=== PATIENT | female | born 1990 | race Caucasian/White ===

== ENCOUNTER 2017-03-22 10:34 | Inpatient (IN) ==
[2017-03-22] MEDS ORDERED: AMPICILLIN 2,000 MG VIAL ONE (10:50)
[2017-03-22] MEDS ORDERED: SODIUM CHLORIDE 0.9% 100 ML IV ONE (10:50)
[2017-03-22] MEDS ORDERED: AMPICILLIN INJ 2,000 MG in SODIUM CHLORIDE 0.9% 100 ML IV ONE (11:05)
[2017-03-22] MEDS ORDERED: MEPERIDINE 50 MG/1 ML VIAL IV PRN (11:13)
[2017-03-22] MEDS ORDERED: ONDANSETRON 4 MG/2 ML VIAL IV PRN (11:13)
[2017-03-22] MEDS ORDERED: BUTORPHANOL 2 MG/ML VIAL IV PRN (11:13)
[2017-03-22] MEDS ORDERED: diphenhydrAMINE 50 MG/1 ML VIAL IV PRN ×2 (11:17)
[2017-03-22] MEDS ORDERED: CITRIC ACID/SODIUM CITRATE 30 ML UDCUP PO ONE (11:17)
[2017-03-22] MEDS ORDERED: LACTATED RINGERS 1,000 ML IV ONE (11:17)
[2017-03-22] MEDS ORDERED: ONDANSETRON 4 MG/2 ML VIAL IV ONE (11:17)
[2017-03-22] MEDS ORDERED: FAMOTIDINE 20 MG/2 ML VIAL IV ONE (11:17)
[2017-03-22] MEDS ORDERED: PROMETHAZINE 25 MG/1 ML VIAL IM ONE (11:17)
[2017-03-22] MEDS ORDERED: fentaNYL 2 MCG/ROPIV 0.2% EPID 150 ML EPIDURAL SCH (11:17)
[2017-03-22] MEDS ORDERED: hydrOXYzine HCL 25 MG/1 ML VIAL IM PRN (11:17)
[2017-03-22] MEDS ORDERED: ePHEDrine 50 MG/ML AMP IV PRN (11:17)
[2017-03-22] MEDS ORDERED: OXYTOCIN/LR 20 UNIT/1,000 ML BAG IV SCH (11:30)
[2017-03-22 11:49] LABS: Basophils % 0.1 % (0.0-0.8); Eosinophils # 0.1 10*3/uL (0.0-0.87); Eosinophils % 0.8 % (0.00-10.9); Hematocrit 35.9 VOL% (35.7-47.0); Hemoglobin 12.1 GM/DL (12.0-16.0); Immature Granulocytes % 0.8 %; Immature Granulocytes Absolute 0.08 #; Lymphocytes # 2.4 10*3/uL (1.4-4.0); Lymphocytes % 24.1 % (21.3-54.2); Mean Corpuscular HGB Conc 33.7 GM/DL (32-36); Mean Corpuscular Hemoglobin 29 PG (27-34); Mean Corpuscular Volume 86.7 FL (87-102); Monocytes # 0.5 10*3/uL (0.11-0.8); Monocytes % 4.7 % (1.7-12.7); Neutrophils % 69.5 % (38.7-73.9); Platelet Count 163 T/CUMM (130-400); Red Blood Count 4.14 MC/CUMM (3.8-5.5); Red Cell Distribution Width 12.8 % (9.3-17.3)
[2017-03-22] MEDS ORDERED: ePHEDrine 50 MG/ML AMP ONE (13:06)
[2017-03-22 14:00] LABS: Apearance,Urine CLEAR (Clear); Bilirubin,Urine Negative (Negative); Blood, Urine Negative (Negative); Glucose,Urine (UA) Negative (Negative); Ketones,Urine 5 mg/dL (Negative); Nitrite,Urine Negative (Negative); Protein,Urine Negative; RBC,Urine <1 /HPF (0-4); Squamous Epithelial Cell,Urine Occasional /HPF (0-10); Urine Color Straw (Yellow); Urine Specific Gravity 1.005 (1.001-1.035); Urine Urobilinogen < 2.0 EU/DL (0.2-1.0); WBC,Urine 1 /HPF (0-6)
[2017-03-22] MEDS: AMPICILLIN INJ 1,000 MG in SODIUM CHLORIDE 0.9% 100 ML IV SCH ×3 (15:54→22:58)
[2017-03-22] MEDS: LACTATED RINGERS 1,000 ML IV SCH ×4 (15:55→20:30)
[2017-03-22] MEDS ORDERED: miSOPROStol 200 MCG TABLET ONE (23:01)
[2017-03-22] MEDS ORDERED: LIDOCAINE 1% 50 ML VIAL ONE (23:01)
[2017-03-23] MEDS: LACTATED RINGERS 1,000 ML IV SCH (00:15)
[2017-03-23] MEDS ORDERED: RHO(D) IMMUNE GLOBULIN 300 MCG SYRINGE IM ONE (00:29)
[2017-03-23] MEDS ORDERED: ACETAMINOPHEN 325 MG TABLET PO PRN (00:29)
[2017-03-23] MEDS ORDERED: LANOLIN 50% CREAM 0.3 OZ TUBE TOP PRN (00:29)
[2017-03-23] MEDS ORDERED: BISACODYL 10 MG SUPP RECTAL PRN (00:29)
[2017-03-23] MEDS ORDERED: DIPH/TET/ACEL PERT BOOSTER VACCINE 0.5 ML VIAL IM ONE (00:29)
[2017-03-23] MEDS ORDERED: OXYTOCIN/LR 20 UNIT/1,000 ML BAG IV ONE (00:29)
[2017-03-23] MEDS ORDERED: oxyCODONE/ACETAMINOPHEN 5-325 MG TABLET PO PRN ×2 (00:29)
[2017-03-23] MEDS ORDERED: BENZOCAINE 20%/MENTHOL 0.5% SPRAY 56 GM CAN TOP PRN (00:29)
[2017-03-23] MEDS ORDERED: MEASLES/MUMPS/RUBELLA VACCINE 0.5 ML VIAL SUBCUT ONE (00:29)
[2017-03-23] MEDS ORDERED: HYDROCORTISONE 2.5% RECTAL CREAM 30 GM TUBE TOP PRN (00:29)
[2017-03-23] MEDS ORDERED: WITCH HAZEL PADS 100/JAR TOP PRN (00:29)
[2017-03-23] MEDS: IBUPROFEN 800 MG TABLET PO PRN ×3 (02:50→20:55)
[2017-03-23 06:54] LABS: Basophils % 0.1 % (0.0-0.8); Eosinophils # 0.1 10*3/uL (0.0-0.87); Eosinophils % 0.5 % (0.00-10.9); Hematocrit 32.6 VOL% (35.7-47.0); Hemoglobin 11.2 GM/DL (12.0-16.0); Immature Granulocytes % 0.6 %; Immature Granulocytes Absolute 0.08 #; Lymphocytes # 2.8 10*3/uL (1.4-4.0); Lymphocytes % 19.8 % (21.3-54.2); Mean Corpuscular HGB Conc 34.4 GM/DL (32-36); Mean Corpuscular Hemoglobin 30 PG (27-34); Mean Corpuscular Volume 86.7 FL (87-102); Mean Platelet Volume 11.9 FL (9.6-12.0); Monocytes # 0.7 10*3/uL (0.11-0.8); Monocytes % 4.9 % (1.7-12.7); Neutrophils # 10.3 10*3/uL (1.4-7.4); Neutrophils % 74.1 % (38.7-73.9); Platelet Count 128 T/CUMM (130-400); Red Blood Count 3.76 MC/CUMM (3.8-5.5); Red Cell Distribution Width 12.7 % (9.3-17.3); White Blood Count 13.9 T/CUMM (4-12)
[2017-03-23] MEDS: DOCUSATE SODIUM 100 MG CAPSULE PO SCH ×2 (09:10→20:55)
--- NOTE | 2017-03-23 10:29 | Anesthesia Post-Op ---
Anesthesia Post OP - Post Ansesthetic Evaluation Patient seen in post op: Yes Resp: within normal limits CV: within normal limits Mental: within normal limits Temp: within normal limits [id number]: within normal limits Nausea and Vomiting: within normal limits Pain: within normal limits
--- NOTE | 2017-03-24 08:49 | History and Physical Update ---
History and Physical Update - History and Physical H&P was reviewed, the patient examined and there: are no changes in the patients condition since last H&P was completed. - Dictation Physical: refer to scanned H&P - Physical Exam Mental Status: alert and oriented Heart: regular rate and rhythm Lung: clear to auscultation Abdomen: within normal limits Vitals: within normal limits History and Physical Changes: Pt was admitted from the office on 03/22/17 in active labor with cervix dilated 6 -7 cm. Pt was at 38+ weeks gestation. No significant complications. GBS was +.
--- NOTE | 2017-03-24 08:50 | OB/GYN Progress Note ---
Assessment and Plan (1) Vaginal delivery Status: Acute Assessment and plan: Routine care. Current Visit: Yes CLINICAL SUPPORT SPECIALIST - PN: Subj Interval history: PPD #1/2 on 03/23/17 Pt doing very well without complaints. Exam CLINICAL SUPPORT SPECIALIST - Constitutional Vitals: Vital Signs Temp Pulse Resp BP Pulse Ox 03/24/17 07:53 18 03/24/17 07:34 97.8 F 79 18 120/70 100 03/24/17 04:16 98.2 F 69 16 99/57 96 03/24/17 00:08 97.3 F L 74 20 108/61 98 03/23/17 19:25 97.1 F L 86 20 106/70 99 03/23/17 15:46 97.1 F L 77 20 96/61 98 03/23/17 11:27 97.2 F L 87 20 98/57 98 General appearance: no acute distress, over weight - Head Head exam: Present: normal inspection, normocephalic - Eye Eye exam: Present: EOMI - Respiratory Respiratory exam: Present: clear to auscultation bilaterally - Cardiovascular Cardiovascular exam: Present: regular rate and rhythm - GI/Abdominal GI/Abdominal exam: Present: soft (fundus firm, nontender) - Extremities Exam Extremities exam: Present: normal inspection - Neurological Exam Neurological exam: Present: alert, oriented X3 - Psychiatric Psychiatric exam: Present: normal affect, normal mood - Skin Skin exam: Present: normal color, warm Results - Labs CBC & BMP: 03/23/17 06:40 Lab Results: I have reviewed the past 24 hour labs
[2017-03-24] MEDS: DOCUSATE SODIUM 100 MG CAPSULE PO SCH (09:05)
[2017-03-24 11:47] VITALS: BP 103/61
--- NOTE | 2017-03-24 12:38 | Discharge Summary ---
Hospital Course - Hospital Course Hospital Course: Pt admitted in labor with advanced dilation at 38+ weeks. She delivered without complication later that evening. Her course has been unremarkable except that she did very well. Diagnosis - Discharge Diagnosis (1) Vaginal delivery Status: Acute Specialty Discharge - Follow Up or Referrals Follow up with: Ingris Sena DO [Primary Care Provider] - (Keep follow up appointment as scheduled ) Discharge Plan - Discharge Data Disposition: Disch To Home/Self Care Condition at Discharge: Stable Discharge Diet: regular diet Activity: other (pelvic rest x 6 wks) Hygiene: may shower Weight Bearing at Discharge: full weight bearing Driving: no restrictions (if not taking narcotics) Contact your physician if you experience:: fever over 101, Difficulty voiding, Redness or swelling, Nausea/Vomiting, Shortness of breath, Bleeding, pain uncontrolled by pain medications - Discharge Medications New Ibuprofen Tab [Motrin Tab] 800 mg PO Q6H PRN #30 tablet PRN Reason: Pain Moderate (4-7) oxyCODONE/ACETAMINOPHEN 5-325 [Percocet 5-325] 1 tablet PO Q6H PRN #30 tablet PRN Reason: Pain Severe (8-10) No Action Vits #90/Iron Fum/FA [ Formula Tablet] 1 tablet PO DAILY - Follow Up or Referral Follow Up: Ingris Sena DO [Primary Care Provider] - (Keep follow up appointment as scheduled ) - Forms/Instructions Instructions: Perineal Care (DC), Vaginal Delivery (DC), Bleeding (DC) Exam - Constitutional Vitals: Period Temp Pulse Resp BP Sys/Flores Pulse Ox Last 24 Hr 97 F-98.2 F 66-86 16-20 96-120/57-70 96-100 General appearance: no acute distress, over weight - Head Head exam: Present: normal inspection, normocephalic - Eye Eye exam: Present: EOMI - Respiratory Respiratory exam: Present: clear to auscultation bilaterally - Cardiovascular Cardiovascular exam: Present: regular rate and rhythm - GI/Abdominal GI/Abdominal exam: Present: soft (fundus firm, nontender), other - Extremities Exam Extremities exam: Present: normal inspection - Neurological Exam Neurological exam: Present: alert, oriented X3 - Psychiatric Psychiatric exam: Present: normal affect, normal mood - Skin Skin exam: Present: normal color, warm DS: Provider Date of admission: 03/22/17 10:34 Primary care physician: Ingris Sena DO Attending physician on admission: Ingris Sena DO Consults: 03/22/17 11:13 Consult to Anesthesiology [CONS] Routine Consulting Provider: Reason for Anesthesiology: Epidural Consult Comment: Epidural for pain managment 03/23/17 00:30 Consult to Intensive Care Nurse [CONS] Routine Consult Intensive Care Nurse: Breast Feeding Discharging clinician: Ingris Sena DO Expected date of discharge: 03/24/17
== END 2017-03-24 12:55 | disposition home or self-care (01) | DRG 775 ==
LOC: N.LD 10:34 → N.OB 03-23 02:38
PROVIDERS: ADMIT Obstetrics & Gynecology; ATTEND Obstetrics & Gynecology